=== PATIENT | male | born 2000 | race Caucasian/White ===

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

== ENCOUNTER 2023-11-30 12:39 | Emergency (ER) | payer OTHER ==
[~2023-11-30] VITALS: Ht 180.3 cm; Wt 64.4 kg
[~2023-11-30 12:39] MED LIST changes: +ZYRTEC10 M3 PO
[2023-11-30] MEDS ORDERED: ORPHENADRINE CITRATE 30 MG/ML AMPUL IM STA (14:02)
[2023-11-30] MEDS ORDERED: DEXAMETHASONE SODIUM PHOSPHATE 4 MG/ML VIAL IM STA (14:02)
[2023-11-30] MEDS ORDERED: ORPHENADRINE CITRATE 30 MG/ML AMPUL ONE (14:07)
[2023-11-30] MEDS ORDERED: DEXAMETHASONE SODIUM PHOSPHATE 4 MG/ML VIAL ONE (14:08)
== END 2023-11-30 16:11 | disposition home or self-care (01) ==
LOC: ER 12:40
DX: S13.4XXA Sprain of ligaments of cervical spine, initial encounter (principal); V49.40XA Driver injured in collision with unspecified motor vehicles in traffic accident, initial encounter; Y93.89 Activity, other specified; Y92.413 State road as the place of occurrence of the external cause; Z88.6 Allergy status to analgesic agent

== ENCOUNTER 2024-01-11 11:17 | Emergency (ER) | payer OTHER ==
[~2024-01-11] VITALS: Ht 180.3 cm; Wt 59.0 kg
[2024-01-11] MEDS ORDERED: NORFLEX100MG PO (12:04)
[2024-01-11] MEDS ORDERED: TRAM1TAB98 PO (12:04)
[2024-01-11] MEDS ORDERED: MEPERIDINE HCL/PF 25 MG/ML VIAL IM ONE (12:15)
== END 2024-01-11 14:46 | disposition home or self-care (01) ==
LOC: ER 11:18
DX: M62.838 Other muscle spasm (principal); M54.2 Cervicalgia; Z88.6 Allergy status to analgesic agent

== ENCOUNTER 2024-08-08 17:03 | Emergency (ER) | payer OTHER ==
[~2024-08-08] VITALS: Ht 170.2 cm; Wt 59.0 kg
[~2024-08-08 17:03] MED LIST changes: +NORFLEX100MG PO; +TRAM1TAB98 PO
[2024-08-08 17:14] VITALS: BP 134/84; O2SAT 99
[2024-08-08] MEDS ORDERED: ORPHENADRINE CITRATE 30 MG/ML AMPUL IM ONE (18:30)
[2024-08-08] MEDS ORDERED: DEXAMETHASONE SODIUM PHOSPHATE 4 MG/ML VIAL IM ONE (18:30)
[2024-08-08] MEDS ORDERED: NORFLEX100MG PO (18:48)
[2024-08-08] MEDS ORDERED: DEXAMETHASONE SODIUM PHOSPHATE 4 MG/ML VIAL ONE (18:51)
[2024-08-08] MEDS ORDERED: ORPHENADRINE CITRATE 30 MG/ML AMPUL ONE (18:51)
== END 2024-08-08 19:05 | disposition home or self-care (01) ==
LOC: ER 17:06
DX: M62.838 Other muscle spasm (principal); Z88.6 Allergy status to analgesic agent